=== PATIENT | female | born 2000 | race Two or more races ===

== ENCOUNTER 2024-07-19 01:05 | Emergency (ER) | payer MEDICAID, SELFPAY ==
[2024-07-19 01:14] VITALS: BP 128/90; PULSE 106; RESP 18; TEMP 37.3; O2SAT 96
--- NOTE | 2024-07-19 01:22 | EDNOTE_ITS ---
Upper Respiratory Inf. RME/HPI General Chief Complaint: Flu Like Symptoms Stated Complaint: COUGH, DIFF BREATHING Time Seen by Provider: 07/19/24 01:18 Arrival date/time: 07/19/24 01:05 24F with no significant PMH presents to ED with 3 days of cough and nasal congestion. Limitations: no limitations Related Data Previous Rx's ?Medication ?Instructions ?Recorded acetaminophen 500 mg capsule 500 mg PO QID PRN pain #2 0 caps 12/21/17 cefadroxil 500 mg capsule 500 mg PO BID #10 caps 12/21 acetaminophen 500 mg capsule 1,000 mg (2 x 500 mg) PO Q8HR PRN 02/14/24 pain #30 caps Allergies Allergy/AdvReac Type Severity Reaction Status Date / Time ibuprofen Allergy Unknown RASH Verified 07/19/24 01:06 Review of Systems Review of Systems Systems Reviewed: All systems reviewed, normal except as documented Constitutional Constitutional: Reports system reviewed and no additional complaints, except as documented, Denies fever(s) and Denies headache(s) ENT Ears, Nose, Mouth, and Throat: Reports as per HPI, Denies disequilibrium, Denies headache(s) and Reports nasal congestion Cardiovascular Cardiovascular: Reports system reviewed and no additional complaints, except as documented, Denies chest pain and Denies dyspnea Respiratory Respiratory: Reports system reviewed and no additional complaints, except as documented, Reports as per HPI, Reports cough and Denies dyspnea Gastrointestinal Gastrointestinal: Reports system reviewed and no additional complaints, except as documented, Denies abdominal pain, Denies nausea and Denies vomiting Neurologic Neurologic: Reports system reviewed and no additional complaints, except as documented, Denies confusion, Denies disequilibrium and Denies headache(s) Psychiatric Psychiatric: Denies confusion Past Medical History Past Medical History NEUROLOGIC: Negative Neurological Disorders CARDIAC: Negative Cardiac Disorders or Congestive Heart Failure RESPIRATORY: Negative Chronic Obstructive Pulmonary Disease (COPD) GENITOURINARY: Negative Renal Disease ENDOCRINE: Negative Diabetes Mellitus Type 1 or Diabetes Mellitus Type 2 Social History SMOKING STATUS: Never smoker ED Exam General Limitations: Present no limitations General appearance: Present alert and in no apparent distress Head Head exam: Present atraumatic Eye Eye exam: Present normal appearance, PERRL and EOMI ENT ENT exam: Present normal exam, normal oropharynx and mucous membranes moist Neck Neck exam: Present normal inspection, full ROM and trachea midline Chest Chest inspection: Present normal inspection and symmetric chest wall rise Respiratory Respiratory exam: Present normal lung sounds bilaterally Cardiovascular Cardiovascular exam: Present regular rate, normal rhythm and normal heart sounds Abdominal Exam Abdominal exam: Present soft and normal bowel sounds Extremities Exam Extremities exam: Present normal inspection and full ROM Back Exam Back exam: Present normal inspection and full ROM Neurological Exam Neurological exam: Present alert, oriented X3 and CN II-XII intact Psychiatric Psychiatric exam: Present normal affect and normal mood Skin Skin exam: Present warm, dry, intact and normal color Course Quality Measures none Orders Category Date Time Status Bedside Influenza A&B Antigen Test NOW Care 07/19/24 01:06 Completed Vital Signs Vital signs: Vital Signs Temperature 99.2 F 07/19/24 01:14 Pulse Rate 106 H 07/19/24 01:14 Respiratory Rate 18 07/19/24 01:14 Blood Pressure 128/90 H 07/19/24 01:14 Pulse Oximetry (%) 96 07/19/24 01:14 Oxygen Delivery Method Room Air 07/19/24 01:14 O2 at 96% on RA and WNLs Upper Respiratory Infection MDM Narrative MDM Narrative:: 24F with no significant PMH presents to ED with 3 days of cough and nasal congestion. Physical exam reveals nasal congestion, but clear lungs. Patient is afebrile, calm, and alert. Flu B+. Patient data External records reviewed:: [facility] previous records Clinical information provided by:: patient Social determinants that could affect healthcare access:: none Patient has the following chronic illnesses:: none How is presenting disease/condition affected by chronic disease/condition?: no chronic disease Evaluation data The following diagnostics were reviewed and interpreted by me:: lab results Lab and/or radiology exams considered but not ordered:: ordered Interpretation Summary: above Medications / Prescriptions Medications or Prescriptions considered but not ordered:: not ordered Medication administrations:: n/a Consultations Consultation(s) initiated? (list below): No Diagnosis Upper Respiratory Differential Diagnosis: upper respiratory infection, croup, otitis media, sinusitis, viral infection, bronchitis, influenza and pharyngitis Most likely diagnosis given after review of the tests above:: flu B Admission Indicated Admission indicated?: not indicated Admission Request Was there a request for admission?: No Disposition Plan Disposition Plan: Discharge Discharge Attestation Discharge Attestation: The patient and all family members were given an opportunity to ask questions and understood the discharge instructions. Discharge instructions specifically effects, indications for sooner follow up or return to the emergency department, and the expected course of current diagnosis. Patient condition: Stable Discharge Plan Plan Patient Disposition: HOME (Self Care) Disposition Comment: Stable Prescriptions/Referrals Prescriptions/Med Rec: No Action acetaminophen 500 mg capsule 500 mg PO QID PRN (Reason: pain) Qty: 20 0RF cefadroxil 500 mg capsule 500 mg PO BID Qty: 10 0RF acetaminophen 500 mg capsule 1,000 mg PO Q8HR PRN (Reason: pain) Qty: 30 0RF Problem List Clinical Impression: Influenza B Patient/Caregiver Discharge Instructions Education Materials: ED Influenza (Adult) Additional Instructions: Please follow-up with PCP within 24-48 hours and return immediately if symptoms worsen. Ibuprofen/Tylenol can be used simultaneously for greater fever/pain control. Benadryl is good for cough, congestion, and sleep. Print Language: Slovak Stand Alone Forms: Patient Portal Info Letter PA/PAPER COUNTER Supervising Physician PA/PAPER COUNTER Supervising Physician: Dr. Ruiz
== END 2024-07-19 01:25 | disposition home or self-care (01) ==
LOC: SERX 02:02
PROVIDERS: Emergency Provider Emergency Medicine
DX: J10.1 Influenza due to other identified influenza virus with other respiratory manifestations (principal)
CPT/HCPCS: 87400; 99283

== ENCOUNTER 2024-10-17 20:20 | Emergency (ER) | payer MEDICAID, SELFPAY ==
[2024-10-17 20:22] VITALS: BMI 39.0
[2024-10-17 20:23] VITALS: BP 124/66; PULSE 65; RESP 18; TEMP 36.6; O2SAT 100
--- NOTE | 2024-10-17 20:23 | EKG_ITS ---
[facility] Test Date: 2024-10-17 Pat Name: RACHEL MORFIN Department: Room: - Gender: Female [employer]: : 2000 Requested By: Frank Hernandez Order Number: [id number] Reading MD: Frank Hernandez Measurements Intervals [place] Rate: 60 P: 40 UT: 156 QRS: 16 QRSD: 121 T: 23 QT: 403 QTc: 404 Interpretive Statements SINUS RHYTHM MODERATE INTRAVENTRICULAR CONDUCTION DELAY [110+ ms QRS DURATION] No previous ECG available for comparison /store/[email or web address]/[id number]
--- NOTE | 2024-10-17 20:54 | PD.EDARRY ---
ED Arrhythmia Palp. RME/HPI General Chief Complaint: Arrhythmia/Palpitations Stated Complaint: PALPITATIONS Time Seen by Provider: 10/17/24 20:28 Arrival date/time: 10/17/24 20:20 RME / HPI RME / HPI narrative: The patient is a 24-year-old female with no significant past medical history presented to ED with chief complaint of palpitation for 4 days. The patient reported that her palpitations are more obvious when she is at home and not doing any work. She denied any chest pain, SOB, headache, lightheadedness, sore throat, abdominal pain, nausea or vomiting, fever or chills, any changes in bowel or bladder habit, or leg swelling. Related Data Previous Rx's ?Medication ?Instructions ?Recorded acetaminophen 500 mg capsule 500 mg PO QID PRN pain #20 caps 12/21/17 cefadroxil 500 mg capsule 500 mg PO BID #10 caps 12/21/17 acetaminophen 500 mg capsule 1,000 mg (2 x 500 mg) PO Q8HR PRN 02/14/24 pain #30 caps calcium carbonate 260 mg PO QDAY #30 tabs 10/17/24 Allergies Allergy/AdvReac Type Severity Reaction Status Date / Time ibuprofen Allergy Unknown RASH Verified 10/17/24 20:24 Review of Systems Review of Systems Systems Reviewed: All systems reviewed, normal except as documented Past Medical History Past Medical History NEUROLOGIC: Negative Neurological Disorders CARDIAC: Negative Cardiac Disorders or Congestive Heart Failure RESPIRATORY: Negative Chronic Obstructive Pulmonary Disease (COPD) GENITOURINARY: Negative Renal Disease ENDOCRINE: Negative Diabetes Mellitus Type 1 or Diabetes Mellitus Type 2 Social History SMOKING STATUS: Never smoker ED Exam Narrative Physical exam: General: Young, obese female, no acute distress, Alert and Oriented x 3 HEENT: Moist mucous membranes, oropharynx clear Neck: Supple, No masses, No JVD CVS: S1S2 Regular rate and rhythm, No murmurs, rubs or gallops Lungs: Clear to auscultation with no accessory use, no wheeze no rhonchi Abd: Soft, NT/ND, +BS, no organomegaly Ext: No edema, warm and well perfused Skin: No rash Psych: Appropriate mood and affect Course Quality Measures none Orders Category Date Time Status EKG (ED ONLY) *Do not use* NOW Care 10/17/24 20:23 Completed EKG (ED Only) Stat Exams 10/17/24 20:23 Draft CBC Stat Lab 10/17/24 20:53 Ordered CMP [Comprehensive Metabolic Panel] Stat Lab 10/17/24 20:53 Ordered Drug Screen,Urine Stat Lab 10/17/24 20:54 Ordered Free T4 (Free Thyroxine) Stat Lab 10/17/24 20:53 Ordered Magnesium Stat Lab 10/17/24 20:53 Ordered Phosphorous Stat Lab 10/17/24 20:53 Ordered TSH [Thyroid Stimulating Hormone] Stat Lab 10/17/24 20:53 Ordered UA [Urinalysis] Stat Lab 10/17/24 20:54 Ordered Vital Signs Vital signs: Vital Signs Temperature 98 F 10/17/24 20:23 Pulse Rate 65 10/17/24 20:23 Respiratory Rate 18 10/17/24 20:23 Blood Pressure 124/66 10/17/24 20:23 Pulse Oximetry (%) 100 10/17/24 20:23 Oxygen Delivery Method Room Air 10/17/24 20:23 Arrhythmia/Palpitations MDM Narrative MDM Narrative:: The patient is a 24-year-old female with no significant past medical history presented to ED with chief complaint of palpitation for 4 days. The patient reported that her palpitations are more obvious when she is at home and not doing any work. She denied any chest pain, SOB, headache, lightheadedness, sore throat, abdominal pain, nausea or vomiting, fever or chills, any changes in bowel or bladder habit, or leg swelling. Her initial vitals were BP 124/66, pulse 65, saturating 100% on room air. Labs revealed hemoglobin of 11.5, chemistry panel revealed potassium 3.3, calcium 8.4, magnesium 1.9, TSH 1.45 and free T4 1.11. EKG revealed sinus rhythm with moderate interventricular conduction delay with QRS 121 ms. The patient's potassium was repleted with KCl 40 mEq p.o. x 2. The patient was plan to discharge home. Patient data External records reviewed:: None Clinical information provided by:: patient Social determinants that could affect healthcare access:: none Patient has the following chronic illnesses:: None How is presenting disease/condition affected by chronic disease/condition?: no chronic disease Evaluation data The following diagnostics were reviewed and interpreted by me:: lab results and EKG tracing(s) Lab and/or radiology exams considered but not ordered:: Urine toxicology and urine analysis Interpretation Summary: See above Medications / Prescriptions Medications or Prescriptions considered but not ordered:: None Medication administrations:: KCl 40 mEq p.o. x 2 Consultations Consultation(s) initiated? (list below): No Diagnosis Differential diagnosis arrhythmia/palpitations: palpitations, anxiety and other (Interventricular conduction delay) Most likely diagnosis given after review of the tests above:: Moderate interventricular conduction delay likely secondary to hypokalemia Admission Indicated Admission indicated?: not indicated Admission Request Was there a request for admission?: No Disposition Plan Disposition Plan: Discharge Discharge Attestation Discharge Attestation: The patient and all family members were given an opportunity to ask questions and understood the discharge instructions. Discharge instructions specifically effects, indications for sooner follow up or return to the emergency department, and the expected course of current diagnosis. Patient condition: Stable Discharge Plan Plan Patient Disposition: HOME (Self Care) Prescriptions/Referrals Prescriptions/Med Rec: New calcium carbonate 260 mg calcium (648 mg) tablet 260 mg PO QDAY Qty: 30 0RF No Action acetaminophen 500 mg capsule 500 mg PO QID PRN (Reason: pain) Qty: 20 0RF cefadroxil 500 mg capsule 500 mg PO BID Qty: 10 0RF acetaminophen 500 mg capsule 1,000 mg PO Q8HR PRN (Reason: pain) Qty: 30 0RF Referrals: Donnell Mathur [Primary Care Provider] - In 1 week Problem List Clinical Impression: Abnormal cardiac conduction Patient/Caregiver Discharge Instructions Discharge Activity: activity as tolerated Education Materials: Exercise for a Healthier Heart, Eating Heart-Healthy Foods Additional Instructions: You have been diagnosed with moderate interventricular conduction delay likely secondary to low potassium level. The patient was discharged by Dr. Woodall with the following recommendations: Please follow-up with your PCP within 1 week of discharge, and request EKG test with potassium level. You have been started on: -Calcium carbonate 260 Mg daily for 1 month -Recommended to take high potassium diet like avocado, tomatoes, oranges Continue taking all other medicines as prescribed -Recommended to return back to emergency department if your symptoms persists or worsens Print Language: Albanian Stand Alone Forms: Luisa Award Info., Patient Portal Info Letter
[2024-10-17 21:00] VITALS: BP 131/83; PULSE 56; RESP 19; TEMP 36.9; O2SAT 100
[2024-10-17 21:39] LABS: Basophils # (Auto) 0.1 Thou/mm3 (0.0-0.2); Basophils % (Auto) 1 % (0-2.5); Eosinophils # (Auto) 0.2 Thou/mm3 (0.0-0.5); Eosinophils % (Auto) 2 % (0-10); Hematocrit 34.7 % (36.0-46.0); Hemoglobin 11.5 g/dL (12.0-16.0); Immature Granulocytes % (Auto) 1 % (0-0); Immature Granulocytes Auto 0.04 Thou/mm3 (0.00-0.00); Lymphocytes # (Auto) 2.6 Thou/mm3 (1.0-4.8); Lymphocytes % (Auto) 31 % (10-50); Mean Corpuscular HGB Conc 33.1 g/dl (31.0-37.0); Mean Corpuscular Hemoglobin 27.8 pg (25.0-35.0); Mean Corpuscular Volume 84 fL (80-100); Monocytes # (Auto) 0.6 Thou/mm3 (0.0-0.8); Monocytes % (Auto) 7 % (0-12); Neutrophils # (Auto) 4.9 Thou/mm3 (1.8-7.7); Neutrophils % (Auto) 59 % (37-80); Nucleated Red Blood Cell % 0 /100 WBC (0); Platelet Count 304 Thou/mm3 (140-440); RDW Standard Deviation 42.5 fL (36.4-46.3); Red Blood Count 4.13 Miln/mm3 (4.00-5.20); White Blood Count 8.4 Thou/mm3 (3.6-11.0)
[2024-10-17 22:00] VITALS: BP 107/72; PULSE 72; RESP 21; TEMP 36.9; O2SAT 100
[2024-10-17 22:08] LABS: Sodium 142 mMol/L (136-145)
[2024-10-17 22:09] LABS: Alanine Aminotransferase 23 U/L (10-49); Albumin, Serum 4.1 gm/dL (3.5-5.0); Albumin/Globulin Ratio 1.5 (1.2-2.2); Alkaline Phosphatase 100 U/L (46-116); Anion Gap 9 (7-16); Aspartate Amino Transferase 19 U/L (0-34); BUN/Creatinine Ratio 12 Ratio (12-20); Bilirubin,Total < 0.2 mg/dL (0.3-1.2); Blood Urea Nitrogen 7 mg/dL (9-23); Calcium 8.4 mg/dL (8.3-10.6); Calcium (Corrected) 8.4 mg/dL (8.5-10.1); Carbon Dioxide 25.9 mMol/L (20.0-31.0); Chloride 107 mMol/L (98-107); Creatinine (Component) 0.6 mg/dL (0.6-1.3); Estimated Creatinine Clearance 142.6 mL/min (>60); Free T4 (Free Thyroxine) 1.11 ng/dL (0.89-1.76); Globulin 2.8 gm/dL (2.3-3.5); Glucose 100 mg/dL (74-106); Magnesium 1.9 mg/dL (1.6-2.6); Osmolality,Calculated 281 (275-295); Phosphorous 2.5 mg/dL (2.4-5.1); Potassium 3.3 mMol/L (3.4-5.1); Thyroid Stimulating Hormone 1.45 uIU/mL (0.55-4.78); Total Protein 6.9 gm/dL (5.7-8.2); eGFR > 60 See Note
[2024-10-17] MEDS: POTASSIUM CHLORIDE 20 mEq TABCR 40 MEQ PO ×2 (22:35→22:59)
--- NOTE | 2024-10-17 22:58 | PC.NURSE ---
CALLED HOUSE SUP TO BEING CALCIUM CARBONATE
[2024-10-17 23:00] VITALS: BP 125/78; PULSE 64; RESP 19; TEMP 37; O2SAT 99
[2024-10-17] MEDS: ACETAMINOPHEN 325 MG TABLET 650 MG PO (23:05)
[2024-10-17] MEDS: CALCIUM CARBONATE 600 MG TABLET PO (23:19)
== END 2024-10-17 23:22 | disposition home or self-care (01) ==
PROVIDERS: Emergency Provider Student in an Organized Health Care Education/Training Program; PCP Physician Assistant
DX: R00.2 Palpitations (principal)
CPT/HCPCS: 36415; 80053; 80307; 81001; 83735; 84100; 84439; 84443; 85025; 93005; 99283; A9270

== ENCOUNTER 2025-03-30 17:33 | Emergency (ER) | payer MEDICAID, SELFPAY ==
[2025-03-30 17:34] VITALS: BMI 38.5
[2025-03-30 18:21] VITALS: BP 128/66; PULSE 88; RESP 18; TEMP 37.1; O2SAT 100
--- NOTE | 2025-03-30 18:38 | PD.EDANKLE ---
Lower Extremity Injury RME/HPI General Chief Complaint: Ankle/Foot Injury Stated Complaint: R ANKLE PAIN S/P TRIP AT WORK Time Seen by Provider: 03/30/25 18:31 Arrival date/time: 03/30/25 17:33 24F with no significant PMH presents to ED with R ankle/foot pain after trip at work. Limitations: no limitations Related Data Previous Rx's ?Medication ?Instructions ?Recorded acetaminophen 500 mg capsule 500 mg PO QID PRN pain #20 caps 12/21/17 cefadroxil 500 mg capsule 500 mg PO BID #10 caps 12/21/17 acetaminophen 500 mg capsule 1,000 mg (2 x 500 mg) PO Q8HR PRN 02/14/24 pain #30 caps calcium carbonate 260 mg PO QDAY #30 tabs 10/17/24 Allergies Allergy/AdvReac Type Severity Reaction Status Date / Time ibuprofen Allergy Unknown RASH Verified 03/30/25 17:36 Review of Systems Review of Systems Systems Reviewed: All systems reviewed, normal except as documented Musculoskeletal Musculoskeletal: Reports as per HPI and Reports arthralgias Past Medical History Past Medical History NEUROLOGIC: Negative Neurological Disorders CARDIAC: Negative Cardiac Disorders or Congestive Heart Failure RESPIRATORY: Negative Chronic Obstructive Pulmonary Disease (COPD) GENITOURINARY: Negative Renal Disease ENDOCRINE: Negative Diabetes Mellitus Type 1 or Diabetes Mellitus Type 2 Social History SMOKING STATUS: Never smoker ED Exam General Limitations: Present no limitations General appearance: Present alert and in no apparent distress Head Head exam: Present atraumatic Neck Neck exam: Present normal inspection, full ROM and trachea midline Chest Chest inspection: Present normal inspection and symmetric chest wall rise Extremities Exam Extremities exam: Present full ROM Expanded Lower Extremity Exam Foot/toe exam: Present full ROM (R) and tenderness Neurological Exam Neurological exam: Present alert and oriented X3 Psychiatric Psychiatric exam: Present normal affect and normal mood Skin Skin exam: Present warm, dry, intact and normal color Course Quality Measures none Orders Category Date Time Status XR foot comp RT min 3V Stat Exams 03/30/25 18:31 Ordered Vital Signs Vital signs: Vital Signs Temperature 98.7 F 03/30/25 18:21 Pulse Rate 88 03/30/25 18:21 Respiratory Rate 18 03/30/25 18:21 Blood Pressure 128/66 03/30/25 18:21 Pulse Oximetry (%) 100 03/30/25 18:21 Oxygen Delivery Method Room Air 03/30/25 18:21 O2 at 100% on RA and WNLs Extremity Injury, Lower MDM Narrative MDM Narrative:: 24F with no significant PMH presents to ED with R ankle/foot pain after trip at work. Physical exam reveals R foot tenderness. No ankle tenderness. Normal ROM and gait normal. Patient is afebrile, calm, and alert. Patient AMA'd. Patient data External records reviewed:: [facility] previous records Clinical information provided by:: patient Social determinants that could affect healthcare access:: none Patient has the following chronic illnesses:: none How is presenting disease/condition affected by chronic disease/condition?: no chronic disease Evaluation data The following diagnostics were reviewed and interpreted by me:: radiology exam(s) Lab and/or radiology exams considered but not ordered:: ordered Interpretation Summary: above Medications / Prescriptions Medications or Prescriptions considered but not ordered:: not ordered Medication administrations:: n/a Consultations Consultation(s) initiated? (list below): No Diagnosis Extremity Injury, Lower Differential Diagnosis: ankle sprain and strain, acute internal derangement of knee, puncture wound of foot, fracture of toe and ankle fracture Most likely diagnosis given after review of the tests above:: foot pain Admission Indicated Admission indicated?: not indicated Admission Request Was there a request for admission?: No Disposition Plan Disposition Plan: other (specify) (AMA'd) Discharge Plan Plan Patient Disposition: Left Against Medical Advice Prescriptions/Referrals Prescriptions/Med Rec: No Action acetaminophen 500 mg capsule 500 mg PO QID PRN (Reason: pain) Qty: 20 0RF cefadroxil 500 mg capsule 500 mg PO BID Qty: 10 0RF acetaminophen 500 mg capsule 1,000 mg PO Q8HR PRN (Reason: pain) Qty: 30 0RF calcium carbonate 260 mg calcium (648 mg) tablet 260 mg PO QDAY Qty: 30 0RF Referrals: No Primary/Family,Physician [Primary Care Provider] - In 1 week Problem List Clinical Impression: Foot pain Patient/Caregiver Discharge Instructions Print Language: Latvian PA/PRODUCT STRATEGY DIRECTOR Supervising Physician PA/PRODUCT STRATEGY DIRECTOR Supervising Physician: Dr. Stark
--- NOTE | 2025-03-30 19:12 | PC.NURSE ---
@1909- PT SPEAKING TO THIS RN STATING WANTING TO LEAVE AMA; PER PT, I HAVE TO DATA [employer] CONSULT[employer] MY DAUGHTER. PT ASKED IF SHE CAN STAY FOR XRAY; PER PT, NO, I HAVE TO GO. I WILL COME BACK TOMORROW. RISKS OF LEAVING AMA EXPLAINED TO PT; PT A&OX4, [facility] 15. PT SIGNED AMA FORM.
== END 2025-03-30 19:15 | disposition left against medical advice (07) ==
PROVIDERS: Emergency Provider Emergency Medicine
DX: M79.672 Pain in left foot (principal); Z53.21 Procedure and treatment not carried out due to patient leaving prior to being seen by health care provider
CPT/HCPCS: 99281